=== PATIENT | female | born 1975 | race Caucasian/White ===

== ENCOUNTER 2016-12-14 15:28 | Inpatient (IN) | payer MEDICAID, OTHER ==
[~2016-12-14] VITALS: Ht 144.8 cm; Wt 56.1 kg
[2016-12-14] MEDS ORDERED: fentaNYL INJECTION 100 MCG/2 ML AMP IVP STA (16:12)
[2016-12-14] MEDS ORDERED: NS IV 1000 ML 1,000 ML IV ONE ×2 (16:12→18:14)
[2016-12-14] MEDS ORDERED: ACETAMINOPHEN 325 MG TABLET/CAPLET (TYLENOL) PO STA (16:12)
--- NOTE | 2016-12-14 16:16 | ED General ---
General Chief Complaint: Abdominal/GI Problems Stated Complaint: POST OP/INFECTION Nursing Triage Note: pt was brought to room by wheelchair. pt states she has her appendix removed on 12/10/16. pt states she was recovering fine until yesterday when she started having right sided abd pain. brandon were removed thursday. pt states she was told she had an infection at one of her incision sights. pain has been getting worse from there. pt states she was prescribed antibiotics from [facility]. pt complains of diarrhea and n/v. Nursing Sepsis Screen: Possible Sepsis Risk Source of Information: Patient, Family Exam Limitations: No Limitations History of Present Illness Time Seen by Provider: 15:59 Initial Comments Here with complaint of increasing abdominal pain. She apparently had her appendix removed last Thursday, 03 December. She had increasing pain. She had brandon removed and still had a gaping wound as of Thursday. Apparently was admitted to the hospital at [facility]. She was reported to have had a fever by the patient and family and pain that was worsening. Noted to have some sort of fluid collection in her abdomen. Family was concerned because they state that they were not doing anything at the hospital at [place] and ultimately they left there and came here for further evaluation. They 're very concerned about her care. Patient reports fever and chills and increasing abdominal pain that is no longer just at the right lateral aspect but covers her entire abdomen. She was apparently on multiple antibiotics or multiple IVs but the patient and the family neither knew exactly what she was taking or being given. Timing/Duration: 1 Week, Getting Worse Severity: Moderate, Severe Associated Systoms: No Chest Pain, No Cough, Fever/Chills, Loss of Appetite, Nausea/Vomiting, No Shortness of Air, Weakness Allergies and Home Medications Allergies Coded Allergies: No Known Drug Allergies (Unverified , 12/14/16) Constitutional: see HPI, No chills, fever EENTM: no symptoms reported Respiratory: no symptoms reported, No cough, No short of breath Cardiovascular: no symptoms reported, No chest pain Gastrointestinal: see HPI, abdominal pain (diffuse), No nausea, No vomiting Genitourinary: No dysuria, No pain : No Musculoskeletal: no symptoms reported Skin: no symptoms reported Psychiatric/Neurological: Denies Headache, Weakness Hematologic/Lymphatic: No Symptoms Reported All Other Systems Reviewed Negative Unless Noted: Yes Past Mgbapud-Bubpva-Kjidbd Hx Patient Social History Alcohol Use: Denies Use Recreational Drug Use: No Smoking Status: Current Everyday Smoker 2nd Hand Smoke Exposure: Yes Recent Foreign Travel: No Contact w/Someone Who Travel: No Recent Infectious Disease Expo: No Recent Hopitalizations: Yes (had appendix removed thursday12/10/16) Seasonal Allergies Seasonal Allergies: No Surgeries HX Surgeries: Yes Surgeries: Appendectomy, Hysterectomy Respiratory Hx Respiratory Disorders: No Cardiovascular Hx Cardiac Disorders: No Neurological Hx Neurological Disorders: No 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 Genitourinary Hx Genitourinary Disorders: No Gastrointestinal Hx Gastrointestinal Disorders: No Musculoskeletal Hx Musculoskeletal Disorders: No Endocrine Hx Endocrine Disorders: No HEENT HX ENT Disorders: No Reviewed Nursing Assessment Reviewed/Agree w Nursing PMH: Yes Family Medical History Significant Family History: No Pertinent Family Hx Physical Exam-Suspected Sepsis Physical Exam Vital Signs Vital Sign - Last 12Hours 12/14/16 15:48 Temp 101.9 Pulse 101 Resp 20 B/P (MAP) 118/74 Pulse Ox 97 O2 Delivery Room Air Capillary Refill : Less Than 3 Seconds Blood Pressure Mean: 89 General Appearance: Anxious, Moderate Distress, Thin HEENT: PERRL/EOMI, Pharynx Normal Neck: Non Tender, Supple Respiratory: Lungs Clear, Normal Breath Sounds Cardiovascular: No Murmur, Tachycardia Gastrointestinal: Soft, No Guarding, No Rebound, Tenderness (diffusely) Back: Normal Inspection, No CVA Tenderness, No Vertebral Tenderness Extremity: Normal Range of Motion, Non Tender Neurologic/Psychiatric: Alert, Oriented x3 Skin: normal color, warm/dry, other (wounds to the abdomen secondary to surgical access are clean, dry and intact. All are covered with Steri-Strips.) Focused Exam Lactic Acid Level Laboratory Tests Test 12/14/16 16:13 Lactic Acid Level 1.41 MMOL/L (0.50-2.00) Progress/Results/Core Measures Suspected Sepsis Recent Fever Within 48 Hours: Yes Infection Criteria Present: Suspected New Infection New/Unexplained Altered Menta: No Sepsis Screen: Possible Sepsis Risk Sepsis Diagnosis: SIRS Temperature:101.9 Pulse: 101 Respiratory Rate: 20 Laboratory Tests 12/14/16 16:13: White Blood Count 13.3H Blood Pressure 118 /74 Mean: 89 Laboratory Tests 12/14/16 16:13: Creatinine 0.63, INR Comment 1.5H, Platelet Count 509H, Total Bilirubin 1.0 Results/Orders Lab Results Laboratory Tests Test 12/14/16 16:13 12/14/16 17:00 Range/Units White Blood Count 13.3 H 4.3-11.0 10^3/uL Red Blood Count 3.46 L 4.35-5.85 10^6/uL Hemoglobin 10.3 L 11.5-16.0 G/DL Hematocrit 32 L 35-52 % Mean Corpuscular Volume 91 80-99 FL Mean Corpuscular Hemoglobin 30 25-34 PG Mean Corpuscular Hemoglobin Concent 33 32-36 G/DL Red Cell Distribution Width 12.7 10.0-14.5 % Platelet Count 509 H 130-400 10^3/uL Mean Platelet Volume 9.2 7.4-10.4 FL Neutrophils (%) (Auto) 85 H 42-75 % Lymphocytes (%) (Auto) 11 L 12-44 % Monocytes (%) (Auto) 4 0-12 % Eosinophils (%) (Auto) 0 0-10 % Basophils (%) (Auto) 0 0-10 % Neutrophils # (Auto) 11.3 H 1.8-7.8 X 10^3 Lymphocytes # (Auto) 1.4 1.0-4.0 X 10^3 Monocytes # (Auto) 0.6 0.0-1.0 X 10^3 Eosinophils # (Auto) 0.0 0.0-0.3 10^3/uL Basophils # (Auto) 0.0 0.0-0.1 10^3/uL Prothrombin Time 17.8 H 12.2-14.7 SEC INR Comment 1.5 H 0.8-1.4 Activated Partial Thromboplast Time 48 H 24-35 SEC Sodium Level 138 135-145 MMOL/L Potassium Level 3.2 L 3.6-5.0 MMOL/L Chloride Level 105 98-107 MMOL/L Carbon Dioxide Level 25 21-32 MMOL/L Anion Gap 8 5-14 MMOL/L Blood Urea Nitrogen 7 7-18 MG/DL Creatinine 0.63 0.60-1.30 MG/DL Estimat Glomerular Filtration Rate > 60 BUN/Creatinine Ratio 11 Glucose Level 89 70-105 MG/DL Lactic Acid Level 1.41 0.50-2.00 MMOL/L Calcium Level 9.0 8.5-10.1 MG/DL Total Bilirubin 1.0 0.1-1.0 MG/DL Aspartate Amino Transf (AST/SGOT) 39 H 5-34 U/L Alanine Aminotransferase (ALT/SGPT) 27 0-55 U/L Alkaline Phosphatase 124 40-136 U/L Total Protein 6.1 L 6.4-8.2 GM/DL Albumin 3.0 L 3.2-4.5 GM/DL Urine Color YELLOW Urine Clarity CLEAR Urine pH 7 5-9 Urine Specific [place] 1.010 L 1.016-1.022 Urine Protein 2+ H NEGATIVE Urine Glucose (UA) NEGATIVE NEGATIVE Urine Ketones NEGATIVE NEGATIVE Urine Nitrite NEGATIVE NEGATIVE Urine Bilirubin NEGATIVE NEGATIVE Urine Urobilinogen NORMAL NORMAL MG/DL Urine Leukocyte Esterase NEGATIVE NEGATIVE Urine RBC (Auto) 4+ H NEGATIVE Urine RBC 5-10 H /HPF Urine WBC 2-5 /HPF Urine Squamous Epithelial Cells 2-5 /HPF Urine Crystals NONE /LPF Urine Bacteria FEW H /HPF Urine Casts NONE /LPF Urine Mucus NEGATIVE /LPF Urine Yeast MODERATE H /HPF Urine Culture Indicated YES My Orders Orders - BECKA WILBURN MD Cbc With Automated Diff (12/14/16 16:12) Comprehensive Metabolic Panel (12/14/16 16:12) Lactic Acid Analyzer (12/14/16 16:12) Blood Culture (12/14/16 16:12) Sputum Culture (12/14/16 16:12) Ua Culture If Indicated (12/14/16 16:12) Protime With Inr (12/14/16 16:12) Partial Thromboplastin Time (12/14/16 16:12) Chest 1 View, Ap/Pa Only (12/14/16 16:12) O2 (12/14/16 16:12) Saline Lock/Iv-Start (12/14/16 16:12) Vital Signs Adult Sepsis Patie Q1HR (12/14/16 16:12) Remove Rings In Anticipation O (12/14/16 16:12) Ns Iv 1000 Ml (Sodium Chloride 0.9%) (12/14/16 16:12) Acetaminophen Tablet/Caplet (Tylenol T (12/14/16 16:12) Fentanyl Injection (Sublimaze Injection (12/14/16 16:12) Ct Abdomen/Pelvis W (12/14/16 16:12) Iohexol Injection (Omnipaque 350 Mg/Ml 1 (12/14/16 16:30) Ns (Ivpb) (Sodium Chloride 0.9% Ivpb Bag (12/14/16 16:30) Urine Culture (12/14/16 17:00) Piperacillin Sodium/Tazobactam (Zosyn Vi (12/14/16 17:30) Hydromorphone Injection (Dilaudid Inject (12/14/16 17:29) Medications Given in ED Current Medications Medications Dose Ordered Sig/Shikha Route Start Time Stop Time Status Last Admin Dose Admin Iohexol 100 ml ONCE ONCE IV 12/14/16 16:30 12/14/16 16:31 DC 12/14/16 16:28 100 ML Sodium Chloride 100 ml ONCE ONCE IV 12/14/16 16:30 12/14/16 16:31 DC 12/14/16 16:28 80 ML Sodium Chloride 1,000 ml @ 0 mls/hr Q0M ONCE IV 12/14/16 16:12 12/14/16 16:16 DC 12/14/16 16:45 1,000 MLS/HR Vital Signs/I&O Vital Sign - Last 12Hours 12/14/16 12/14/16 15:48 16:44 Temp 101.9 101.9 Pulse 101 Resp 20 B/P (MAP) 118/74 Pulse Ox 97 O2 Delivery Room Air Capillary Refill : Less Than 3 Seconds Blood Pressure Mean: 89 Progress Note : Progress Note Seen and evaluated. IV, labs, UA, chest x-ray and CT abdomen and pelvis with contrast ordered. Normal saline 1 L bolus. Blood cultures and lactic acid ordered. Monitor patient. 1717: Case discussed with Dr. Vila. There is a large intra-abdominal abscess on the right side noted on CT scan. This is concerning for abscess. Dr. Vila has graciously accepted to admit the patient and will pursue interventional radiology draining if possible. Zosyn 4.5 g IV initiated. Patient's pain was improved briefly with the fentanyl but did not last long. Dilaudid 0.5 mg IV given. Admit, inpatient status. Patient and family informed and agree with plan and are appreciative of care. Diagnostic Imaging Diagonstic Imaging: Xray Plain Films/CT/US/NM/MRI: chest Comments VIA [facility], [facility]. [place], [place] NAME: SAMANTHA CHAND [facility] REC#: [id number] PT STATUS: REG ER : 1975 PHYSICIAN: BECKA WILBURN MD ADMIT DATE: 12/14/16/ER Draft Date of Exam:12/14/16 CHEST 1 VIEW, AP/PA ONLY INDICATION: Appendix removed on 12/10/2016, right-sided pain. EXAMINATION: Frontal chest, 12/14/2016. FINDINGS: There is atelectasis in right lung base. No effusions. No pneumothorax or free air within the visualized upper abdomen. Heart and pulmonary vasculature unremarkable. IMPRESSION: 1. Mild right base atelectasis, otherwise negative chest. Dictated on workstation # [id number] Dict: 12/14/16 1628 Trans: 12/14/16 1633 [facility] [id number] Interpreted by: EDILMA BUNDY MD Electronically signed by: Hilarygonsjsesie Imaging: CT Plain Films/CT/US/NM/MRI: abdomen, pelvis Comments VIA [facility]. [place], [place] NAME: SAMANTHA CHAND [facility] REC#: [id number] PT STATUS: REG ER : 1975 PHYSICIAN: BECKA WILBURN MD ADMIT DATE: 12/14/16/ER Draft Date of Exam:12/14/16 CT ABDOMEN/PELVIS W TECHNIQUE: Multiple contiguous axial images were obtained through the abdomen and pelvis after administration of intravenous contrast. INDICATION: Appendectomy on 12/10/2016. Abdominal pain since yesterday. Nausea, vomiting, diarrhea. EXAMINATION: CT abdomen and pelvis with contrast, 12/14/2016. No priors available for comparison. FINDINGS: There is a large peripherally enhancing fluid collection within the right midabdomen just lateral to the ascending colon. This measures approximately 12.9 cm in craniocaudal dimension, 6.4 cm AP dimension and 5 cm transverse. Most likely given its appearance, this is a large abscess which extends upwards towards the tip of the liver. Actual extension into the liver is felt to be unlikely but difficult to completely exclude. Mild hyperdensity in the adjacent liver is noted. Suture line inferior to the fluid collection is noted in the right lower quadrant consistent with a previous postsurgical change. There is fluid within the adjacent cecum. No free air is appreciated. There is diffuse fat stranding throughout the mesentery. There is free fluid in the pelvis. Gallbladder unremarkable. Fatty infiltration seen throughout the liver. The spleen is normal in appearance. The adrenal glands appear unremarkable as well. The pancreas is normal as well. No acute osseous abnormality is seen. The visualized lung bases demonstrate bibasilar dependent atelectasis. IMPRESSION: 1. Large peripherally enhancing fluid collection in right aspect of the abdomen most consistent with an abscess. Smaller tiny similar findings in the right lower quadrant possible difficult to exclude given lack of oral contrast. 2. Free fluid in the pelvis. 3. Mild fat stranding throughout the mesentery, likely reactive. Clinical exclusion of peritonitis would be recommended. Other incidental findings as described above. 4. Very small bilateral pleural effusions with adjacent bibasilar dependent atelectasis noted. Dictated on workstation # [id number] Dict: 12/14/16 1647 Trans: 12/14/16 1702 [facility] [id number] Interpreted by: EDILMA BUNDY MD Electronically signed by: Reviewed: Reviewed by Me Departure Communication Time/Spoke to Admitting Phy: 17:17 Impression Impression: Primary Impression: Postoperative intra-abdominal abscess Qualified Codes: T81.4XXA - Infection following a procedure, initial encounter ; K65.1 - Peritoneal abscess Disposition: 09 ADMITTED INPATIENT Condition: Stable Admissions Decision to Admit Reason: Admit from ER (General) Decision to Admit/Date: Dec 14, 2016 Time/Decision to Admit Time: 17:17 Departure-Patient Inst. Referrals: NO,LOCAL PHYSICIAN (PCP/Family) Primary Care Physician BECKA WILBRUN MD Dec 14, 2016 16:16
[2016-12-14] MEDS ORDERED: IOHEXOL 350 MG/ML 100 ML (OMNIPAQUE 350) VIAL IV ONE (16:30)
[2016-12-14] MEDS ORDERED: NS 100 ML (IVPB) BAG IV ONE (16:30)
--- NOTE | 2016-12-14 16:33 | Diagnostic Imaging Report ---
INDICATION: Appendix removed on 12/10/2016, right-sided pain. EXAMINATION: Frontal chest, 12/14/2016. FINDINGS: There is atelectasis in right lung base. No effusions. No pneumothorax or free air within the visualized upper abdomen. Heart and pulmonary vasculature unremarkable. IMPRESSION: 1. Mild right base atelectasis, otherwise negative chest. Dictated by: Dictated on workstation # [id number]
[2016-12-14 16:36] LABS: BASOPHILS % (AUTO) 0 % (0-10); EOSINOPHILS % (AUTO) 0 % (0-10); LYMPHOCYTES # (AUTO) 1.4 X 10^3 (1.0-4.0); LYMPHOCYTES % (AUTO) 11 % (12-44); MEAN CORPUSCULAR HEMOGLOBIN 30 PG (25-34); MEAN CORPUSCULAR HGB CONC 33 G/DL (32-36); MEAN CORPUSCULAR VOLUME 91 FL (80-99); MEAN PLATELET VOLUME 9.2 FL (7.4-10.4); MONOCYTES # (AUTO) 0.6 X 10^3 (0.0-1.0); MONOCYTES % (AUTO) 4 % (0-12); NEUTROPHILS # (AUTO) 11.3 X 10^3 (1.8-7.8); NEUTROPHILS % (AUTO) 85 % (42-75); PLATELET COUNT 509 10^3/uL (130-400); RED BLOOD COUNT 3.46 10^6/uL (4.35-5.85); RED CELL DISTRIBUTION WIDTH 12.7 % (10.0-14.5); WHITE BLOOD COUNT 13.3 10^3/uL (4.3-11.0)
[2016-12-14 16:47] LABS: INR 1.5 (0.8-1.4); PROTHROMBIN TIME PATIENT 17.8 SEC (12.2-14.7)
[2016-12-14 16:57] LABS: ALANINE AMINOTRANSFERASE 27 U/L (0-55); ANION GAP 8 MMOL/L (5-14); ASPARTATE AMINO TRANSFERASE 39 U/L (5-34); BLOOD UREA NITROGEN 7 MG/DL (7-18); BUN/CREATININE RATIO 11; CARBON DIOXIDE 25 MMOL/L (21-32); CHLORIDE 105 MMOL/L (98-107); CREATININE SERUM 0.63 MG/DL (0.60-1.30); GFR ESTIMATED > 60; GLUCOSE 89 MG/DL (70-105); POTASSIUM 3.2 MMOL/L (3.6-5.0); SODIUM 138 MMOL/L (135-145); TOTAL PROTEIN 6.1 GM/DL (6.4-8.2)
--- NOTE | 2016-12-14 17:03 | Diagnostic Imaging Report ---
TECHNIQUE: Multiple contiguous axial images were obtained through the abdomen and pelvis after administration of intravenous contrast. INDICATION: Appendectomy on 12/10/2016. Abdominal pain since yesterday. Nausea, vomiting, diarrhea. EXAMINATION: CT abdomen and pelvis with contrast, 12/14/2016. No priors available for comparison. FINDINGS: There is a large peripherally enhancing fluid collection within the right midabdomen just lateral to the ascending colon. This measures approximately 12.9 cm in craniocaudal dimension, 6.4 cm AP dimension and 5 cm transverse. Most likely given its appearance, this is a large abscess which extends upwards towards the tip of the liver. Actual extension into the liver is felt to be unlikely but difficult to completely exclude. Mild hyperdensity in the adjacent liver is noted. Suture line inferior to the fluid collection is noted in the right lower quadrant consistent with a previous postsurgical change. There is fluid within the adjacent cecum. No free air is appreciated. There is diffuse fat stranding throughout the mesentery. There is free fluid in the pelvis. Gallbladder unremarkable. Fatty infiltration seen throughout the liver. The spleen is normal in appearance. The adrenal glands appear unremarkable as well. The pancreas is normal as well. No acute osseous abnormality is seen. The visualized lung bases demonstrate bibasilar dependent atelectasis. IMPRESSION: 1. Large peripherally enhancing fluid collection in right aspect of the abdomen most consistent with an abscess. Smaller tiny similar findings in the right lower quadrant possible difficult to exclude given lack of oral contrast. 2. Free fluid in the pelvis. 3. Mild fat stranding throughout the mesentery, likely reactive. Clinical exclusion of peritonitis would be recommended. Other incidental findings as described above. 4. Very small bilateral pleural effusions with adjacent bibasilar dependent atelectasis noted. Dictated by: Dictated on workstation # [id number]
[2016-12-14 17:08] LABS: BILIRUBIN,URINE NEGATIVE (NEGATIVE); KETONES,URINE NEGATIVE (NEGATIVE); LEUKOCYTE ESTERASE ,URINE NEGATIVE (NEGATIVE); NITRITE,URINE NEGATIVE (NEGATIVE); PH,URINE 7 (5-9); PROTEIN,URINE 2+ (NEGATIVE); UROBILINOGEN,URINE NORMAL (NORMAL)
[2016-12-14 17:20] LABS: YEAST,URINE MODERATE /HPF
[2016-12-14] MEDS ORDERED: HYDROmorphone (DILAUDID) 2 MG/ML VIAL IVP STA (17:29)
[2016-12-14] MEDS ORDERED: PIPERACILLIN/TAZO 4.5 GM VIAL (ZOSYN) IV ONE (17:30)
[2016-12-14 18:53] VITALS: BP 84/53
[2016-12-14] MEDS: POTASSIUM CL 10MEQ/50ML IVPB 50 ML IV SCH ×5 (19:47→23:47)
--- NOTE | 2016-12-14 19:59 | History & Physicial ---
History of Present Illness History of Present Illness Reason for visit/HPI fever and increasing pain over the right lower quadrant of the abdomen.laparoscopic appendectomy 10 days ago with fluctuating temperature and continued malaise. CT scan shows a 12 cm abscess over the right paracecal region, requiring percutaneous drainage. Date of Admission Dec 14, 2016 at 5:32 pm Date Seen by Provider: Dec 14, 2016 Time Seen by Provider: 19:57 I consulted on this patient on 12/14/16 19:56 Attending Physician Naveen Sawant MD Admitting Physician No,Local Physician Consult Allergies and Home Medications Allergies Coded Allergies: No Known Drug Allergies (Unverified , 12/14/16) Past Tuwzlvd-Vvpmpg-Nilsmo Hx Patient Social History Marrital Status: Employed/Student: employed Alcohol Use: Denies Use Recreational Drug Use: No Smoking Status: Current Everyday Smoker Type Used: Cigarettes 2nd Hand Smoke Exposure: Yes Recent Foreign Travel: No Contact w/other who traveled: No Recent Hopitalizations: Yes (had appendix removed thursday12/10/16) Recent Infectious Disease Expo: No Seasonal Allergies Seasonal Allergies: No Surgeries HX Surgeries: Yes Surgeries: Appendectomy, Hysterectomy Respiratory Hx Respiratory Disorders: No Cardiovascular Hx Cardiovascular Disorders: No Neurological Hx Neurological Disorders: No Genitourinary Hx Genitourinary Disorders: No Gastrointestinal Hx Gastrointestinal Disorders: No Musculoskeletal Hx Musculoskeletal Disorders: No Endocrine Hx Endocrine Disorders: No HEENT HX ENT Disorders: No Reviewed Nursing Assessment Reviewed/Agree w Nursing PMH: Yes Family Medical History Significant Family History: No Pertinent Family Hx Constitutional: chills, fever, malaise EENTM: no symptoms reported Respiratory: no symptoms reported Cardiovascular: no symptoms reported Gastrointestinal: abdominal pain (RLQ), loss of appetite Genitourinary: no symptoms reported : No Skin: no symptoms reported Psychiatric/Neurological: No Symptoms Reported Physical Exam Vital Signs Vital Sign - Last 12Hours 12/14/16 15:48 Temp 101.9 Pulse 101 Resp 20 B/P (MAP) 118/74 Pulse Ox 97 O2 Delivery Room Air Capillary Refill : Less Than 3 Seconds General Appearance: Mild Distress HEENT: Normal ENT Inspection Neck: Normal Inspection Respiratory: Lungs Clear Cardiovascular: Regular Rate, Rhythm Gastrointestinal: Tenderness Rectal: Deferred Extremity: Normal Inspection Neurologic/Psychiatric: Alert, Oriented x3 Skin: Warm/Dry Comments tenderness over the right lower quadrant. No wound infection. Assessment/Plan Assessment and Plan lady with post appendectomy abscess. On IV antibiotics. Percutaneous drainage under CT guidance will be scheduled for tomorrow morning. Problems: NAVEEN SAWANT MD Dec 14, 2016 7:59 pm
[2016-12-14] MEDS ORDERED: ONDANSETRON 4 MG/2 ML (SDV) Z0FRAN IVP PRN (20:00)
[2016-12-14] MEDS ORDERED: NICOTINE 7 MG (NICODERM) PATCH TD ONE (20:00)
[2016-12-14] MEDS: NS IV 1000 ML 1,000 ML IV SCH (20:42)
[2016-12-15] VITALS (10 sets, daily range): BP systolic 83–100; BP diastolic 53–68
[2016-12-15] MEDS: fentaNYL INJECTION 100 MCG/2 ML AMP IVP PRN ×6 (01:16→21:40)
[2016-12-15] MEDS: ACETAMINOPHEN 500 MG TAB (TYLENOL) PO PRN ×2 (04:00→15:50)
[2016-12-15 06:01] LABS: BASOPHILS % (AUTO) 0 % (0-10); EOSINOPHILS # (AUTO) 0.1 10^3/uL (0.0-0.3); EOSINOPHILS % (AUTO) 0 % (0-10); LYMPHOCYTES # (AUTO) 1.3 X 10^3 (1.0-4.0); LYMPHOCYTES % (AUTO) 12 % (12-44); MEAN CORPUSCULAR HEMOGLOBIN 30 PG (25-34); MEAN CORPUSCULAR HGB CONC 33 G/DL (32-36); MEAN CORPUSCULAR VOLUME 92 FL (80-99); MEAN PLATELET VOLUME 9.2 FL (7.4-10.4); MONOCYTES # (AUTO) 0.6 X 10^3 (0.0-1.0); MONOCYTES % (AUTO) 5 % (0-12); NEUTROPHILS # (AUTO) 9.3 X 10^3 (1.8-7.8); NEUTROPHILS % (AUTO) 83 % (42-75); PLATELET COUNT 498 10^3/uL (130-400); RED BLOOD COUNT 2.92 10^6/uL (4.35-5.85); RED CELL DISTRIBUTION WIDTH 12.9 % (10.0-14.5); WHITE BLOOD COUNT 11.2 10^3/uL (4.3-11.0)
[2016-12-15 06:13] LABS: INR 1.4 (0.8-1.4); PROTHROMBIN TIME PATIENT 17.1 SEC (12.2-14.7)
[2016-12-15 06:23] LABS: ALANINE AMINOTRANSFERASE 20 U/L (0-55); ALBUMIN 2.5 GM/DL (3.2-4.5); ANION GAP 8 MMOL/L (5-14); ASPARTATE AMINO TRANSFERASE 23 U/L (5-34); BILIRUBIN,TOTAL 0.6 MG/DL (0.1-1.0); BLOOD UREA NITROGEN 5 MG/DL (7-18); BUN/CREATININE RATIO 8; CALCIUM 8.4 MG/DL (8.5-10.1); CARBON DIOXIDE 19 MMOL/L (21-32); CHLORIDE 112 MMOL/L (98-107); CREATININE SERUM 0.59 MG/DL (0.60-1.30); GFR ESTIMATED > 60; GLUCOSE 97 MG/DL (70-105); POTASSIUM 3.4 MMOL/L (3.6-5.0); SODIUM 139 MMOL/L (135-145)
[2016-12-15] MEDS ORDERED: LIDOCAINE 1% INJ 20 ML (XYLOCAINE) VIAL ONE (07:55)
[2016-12-15] MEDS ORDERED: NS IV 1000 ML 1,000 ML IV PRN (08:30)
[2016-12-15] MEDS: NS IV 1000 ML 1,000 ML IV SCH ×2 (09:00→20:03)
[2016-12-15] MEDS: POTASSIUM CL 10MEQ/50ML IVPB 50 ML IV SCH ×4 (09:18→12:25)
--- NOTE | 2016-12-15 09:51 | Diagnostic Imaging Report ---
CT needle aspiration procedure. INDICATION: Pericolonic abscess. The CT abdomen/pelvis exam performed on 12/14/2016, noted a large peripherally enhancing fluid collection along the right lateral aspect of the abdomen. This finding is felt to be related to an abscess. Following aseptic preparation of the skin and administration of local anesthesia a 10-cm Yueh needle was inserted into the fluid collection. Approximately 20 cc of dark non-purulent blood was retrieved. Subsequently, an 8-F catheter was inserted into the area of concern. There was virtually no return from the catheter. The catheter was withdrawn, and the Yueh was advanced into the same area. Again there was virtually no return. Consequently, I do suspect that the pericolonic density seen previously is related to a hematoma. The exam was subsequently terminated. The patient tolerated the procedure well and was dismissed in good condition. IMPRESSION: 1. The pericolonic density seen previously appears to represent a thrombosed hematoma. The specimen received from the suspected hematoma was sent to the lab for analysis. 2. These results were discussed with Dr. Vila. Dictated by: Dictated on workstation # [id number]
[2016-12-15] MEDS ORDERED: LIDOCAINE 1% INJ 20 ML (XYLOCAINE) VIAL INJ ONE (10:00)
[2016-12-15] MEDS ORDERED: fentaNYL INJECTION 100 MCG/2 ML AMP IVP ONE ×2 (10:00→10:15)
[2016-12-15] MEDS ORDERED: OXYC-202 PO (10:14)
[2016-12-15] MEDS ORDERED: ACET-93 PO (10:20)
[2016-12-15] MEDS ORDERED: PIPERACILLIN/TAZOBACTAM 4.5 GM/NS 100 ML IV NR ×2 (15:00)
--- NOTE | 2016-12-15 15:06 | Progress Note (SOAP) ---
Subjective Date Seen by Provider: Dec 15, 2016 Time Seen by Provider: 14:50 Subjective/Events-last exam right lower quadrant drained by the radiologist and found to be a hematoma. Afebrile and pain much improved. Review of Systems General: No Chills, No Night Sweats, No Fatigue, No Malaise HEENT: No Head Aches, No Visual Changes, No Eye Pain, No Ear Pain, No Dysphasia , No Sinus Congestion, No Post Nasal Drip, No Sore Throat, No Other Pulmonary: No Dyspnea, No Cough, No Pleuritic Chest Pain Cardiovascular: No: Chest Pain, Edema, Lt Headedness, Orthopnea, Palpitations, Paroxysmal Noc. Dyspnea Gastrointestinal: Abdominal Pain Genitourinary: No Dysuria, No Frequency, No Incontinence, No Hematuria, No Retention Musculoskeletal: No: arm pain, back pain, foot pain, hand pain, leg pain, neck pain, other, shoulder pain Neurological: No: Change in speech, Confusion, Incoordination, Numbness, Other , Seizures, Weakness Objective Exam Vital Signs Date Time Temp Pulse Resp B/P (MAP) Pulse Ox O2 Delivery O2 Flow Rate FiO2 12/15/16 12:00 99.4 96 20 100/67 96 Room Air 12/15/16 08:50 87 20 93/64 97 Room Air 12/15/16 08:40 89 20 99/66 97 Room Air 12/15/16 08:30 85 20 90/63 97 Room Air 12/15/16 08:20 88 20 88/53 97 Room Air 12/15/16 08:00 97.9 89 20 99/64 97 Room Air 12/15/16 06:14 97.8 12/15/16 05:00 97.9 12/15/16 04:00 101.1 103 18 95/62 91 Room Air 12/15/16 04:00 101.1 12/15/16 00:10 98.9 93 22 83/61 97 Room Air 12/14/16 20:00 Room Air 12/14/16 18:53 98.5 91 20 84/53 96 Room Air 12/14/16 18:36 100.9 100 20 96 Room Air 12/14/16 16:44 101.9 12/14/16 15:48 101.9 101 20 118/74 97 Room Air I & O 12/15/16 07:00 Intake Total 2870 ml Output Total 1000 ml Balance 1870 ml Capillary Refill : Less Than 3 Seconds General Appearance: Anxious, Mild Distress Neck: Normal Inspection Respiratory: Lungs Clear Cardiovascular: Regular Rate, Rhythm Gastrointestinal: non tender, soft Extremity: Normal Inspection Neurologic/Psychiatric: Alert, Oriented x3 Skin: Warm/Dry Results Lab Laboratory Tests 12/14/16 16:13: White Blood Count 13.3H, Red Blood Count 3.46L, Hemoglobin 10.3L, Hematocrit 32L , Mean Corpuscular Volume 91, Mean Corpuscular Hemoglobin 30, Mean Corpuscular Hemoglobin Concent 33, Red Cell Distribution Width 12.7, Platelet Count 509H, Mean Platelet Volume 9.2, Neutrophils (%) (Auto) 85H, Lymphocytes (%) (Auto) 11L , Monocytes (%) (Auto) 4, Eosinophils (%) (Auto) 0, Basophils (%) (Auto) 0, Neutrophils # (Auto) 11.3H, Lymphocytes # (Auto) 1.4, Monocytes # (Auto) 0.6, Eosinophils # (Auto) 0.0, Basophils # (Auto) 0.0, Prothrombin Time 17.8H, INR Comment 1.5H, Activated Partial Thromboplast Time 48H, Sodium Level 138, Potassium Level 3.2L, Chloride Level 105, Carbon Dioxide Level 25, Anion Gap 8, Blood Urea Nitrogen 7, Creatinine 0.63, Estimat Glomerular Filtration Rate > 60 , BUN/Creatinine Ratio 11, Glucose Level 89, Lactic Acid Level 1.41, Calcium Level 9.0, Total Bilirubin 1.0, Aspartate Amino Transf (AST/SGOT) 39H, Alanine Aminotransferase (ALT/SGPT) 27, Alkaline Phosphatase 124, Total Protein 6.1L, Albumin 3.0L 12/14/16 17:00: Urine Color YELLOW, Urine Clarity CLEAR, Urine pH 7, Urine Specific [place] 1.010L, Urine Protein 2+H, Urine Glucose (UA) NEGATIVE, Urine Ketones NEGATIVE, Urine Nitrite NEGATIVE, Urine Bilirubin NEGATIVE, Urine Urobilinogen NORMAL, Urine Leukocyte Esterase NEGATIVE, Urine RBC (Auto) 4+H, Urine RBC 5-10H, Urine WBC 2-5, Urine Squamous Epithelial Cells 2-5, Urine Crystals NONE, Urine Bacteria FEWH, Urine Casts NONE, Urine Mucus NEGATIVE, Urine Yeast MODERATEH, Urine Culture Indicated YES 12/15/16 05:35: White Blood Count 11.2H, Red Blood Count 2.92L, Hemoglobin 8.8L, Hematocrit 27L , Mean Corpuscular Volume 92, Mean Corpuscular Hemoglobin 30, Mean Corpuscular Hemoglobin Concent 33, Red Cell Distribution Width 12.9, Platelet Count 498H, Mean Platelet Volume 9.2, Neutrophils (%) (Auto) 83H, Lymphocytes (%) (Auto) 12 , Monocytes (%) (Auto) 5, Eosinophils (%) (Auto) 0, Basophils (%) (Auto) 0, Neutrophils # (Auto) 9.3H, Lymphocytes # (Auto) 1.3, Monocytes # (Auto) 0.6, Eosinophils # (Auto) 0.1, Basophils # (Auto) 0.0, Prothrombin Time 17.1H, INR Comment 1.4, Activated Partial Thromboplast Time 56H, Sodium Level 139, Potassium Level 3.4L, Chloride Level 112H, Carbon Dioxide Level 19L, Anion Gap 8 , Blood Urea Nitrogen 5L, Creatinine 0.59L, Estimat Glomerular Filtration Rate > 60, BUN/Creatinine Ratio 8, Glucose Level 97, Calcium Level 8.4L, Total Bilirubin 0.6, Aspartate Amino Transf (AST/SGOT) 23, Alanine Aminotransferase ( ALT/SGPT) 20, Alkaline Phosphatase 114, Total Protein 5.0L, Albumin 2.5L Assessment/Plan Assessment/Plan Assess & Plan/Chief Complaint postoperative appendectomy hematoma, aspirated by the radiologist. We'll continue IV antibiotics. Final Diagnosis post-appendectomy hematoma Clinical Quality Measures DVT/VTE Risk/Contraindication: Risk Factor Score Per Nursin RFS Level Per Nursing on Admit: 3=High NAVEEN SAWANT MD Dec 15, 2016 3:06 pm
[2016-12-15] MEDS ORDERED: CATHETER FLUSH 10 ML SYR IV PRN (15:15)
[2016-12-15] MEDS: HYDROcodone/APAP 5 MG/325 MG (LORTAB) TAB PO PRN ×2 (15:30→20:04)
[2016-12-15] MEDS: PIPERACILLIN SODIUM/TAZOBACTAM 4.5 GM in NS (IVPB) 100 ML IV SCH (20:04)
[2016-12-16] VITALS: BP 103/53
[2016-12-16] MEDS: HYDROcodone/APAP 5 MG/325 MG (LORTAB) TAB PO PRN ×4 (00:59→14:19)
[2016-12-16 04:00] VITALS: BP 98/60
[2016-12-16] MEDS: PIPERACILLIN SODIUM/TAZOBACTAM 4.5 GM in NS (IVPB) 100 ML IV SCH ×2 (05:19→14:10)
[2016-12-16 08:17] VITALS: BP 96/60
[2016-12-16] MEDS: NS IV 1000 ML 1,000 ML IV SCH (08:31)
[2016-12-16 12:00] VITALS: BP 109/69
[2016-12-16 15:15] VITALS: BP 117/76
--- NOTE | 2016-12-16 17:21 | Progress Note (SOAP) ---
Subjective Date Seen by Provider: Dec 16, 2016 Time Seen by Provider: 17:05 Subjective/Events-last exam Patient reports doing well. Tolerating diet and ambulating. Denies any N/V. No diarrhea or constipation. Minimal abdominal pain. Patient reports that she is ready to go home. Objective Exam Vital Signs Date Time Temp Pulse Resp B/P (MAP) Pulse Ox O2 Delivery O2 Flow Rate FiO2 12/16/16 15:15 99.6 89 18 117/76 97 Room Air 12/16/16 12:00 98.5 96 20 109/69 97 Room Air 12/16/16 08:17 98.0 75 20 96/60 94 Room Air 12/16/16 04:00 97.5 90 20 98/60 99 Room Air 12/16/16 00:00 98.9 90 22 103/53 95 Room Air 12/15/16 20:00 98.0 82 18 95/58 96 Room Air I & O 12/16/16 07:00 Intake Total 2650 ml Output Total 400 ml Balance 2250 ml Capillary Refill : Less Than 3 Seconds General Appearance: No Apparent Distress, WD/WN HEENT: PERRL/EOMI Neck: Full Range of Motion, Normal Inspection, Non Tender, Supple Respiratory: Chest Non Tender, Lungs Clear, Normal Breath Sounds, No Accessory Muscle Use, No Respiratory Distress Cardiovascular: Regular Rate, Rhythm Gastrointestinal: normal bowel sounds, soft, tenderness Extremity: Normal Capillary Refill, Normal Inspection, Normal Range of Motion, Non Tender, No Calf Tenderness, No Pedal Edema Neurologic/Psychiatric: Alert, Oriented x3 Skin: Normal Color, Warm/Dry Results Lab Microbiology 12/15/16 Blood Culture - Preliminary, Resulted No growth 12/14/16 Urine Culture - Final, Complete Presumptive Emma Glabrata 12/15/16 Gram Stain - Final, Resulted 12/15/16 Anaerobic Culture, Resulted Pending 12/15/16 Surgical Culture - Preliminary, Resulted Escherichia Coli Assessment/Plan Assessment/Plan Assess & Plan/Chief Complaint postoperative appendectomy hematoma, aspirated by the radiologist. WBC improved. VSS. Tolerating diet and ambulating. Will DC home on abx and pain meds. Clinical Quality Measures DVT/VTE Risk/Contraindication: Risk Factor Score Per Nursin RFS Level Per Nursing on Admit: 3=High CRISTHIAN JENSEN [employer]ECT [employer] Dec 16, 2016 17:21
[2016-12-16] MEDS ORDERED: AMOX-355 PO (17:24)
[2016-12-16] MEDS ORDERED: HYDR-3812 PO (17:25)
--- NOTE | 2016-12-16 17:26 | Discharge Inst-Surgical ---
D/C Lap Instructions-KIDO New, Converted, or Re-Newed RX: RX on Chart Follow Up Appt in [address] Vila Activity as tolerated No driving while on pain medications Regular Diet Symptoms to Report: Fever over 101 degree F, Nausea/Vomiting Infection Signs and Symptoms to report: Increased redness, Foul odor of wound, Increased drainage Bathing instructions: May shower Operative Area Clean/Dry; Keep incision clean/dry If any problems/questions: Contact your physician or go to Emergency Room CRISTHIAN JENSEN APRN Dec 16, 2016 5:26 pm
[2016-12-16 18:45] VITALS: BP_DIAS 76
== END 2016-12-16 18:47 | disposition home or self-care (01) | DRG 921 ==
LOC: EDUNIT# 15:28 → ER 15:31 → 4TH 17:32
PROVIDERS: ADMIT Surgery; ATTEND Surgery
PROC: 0W9G3ZZ Drainage of Peritoneal Cavity, Percutaneous Approach (ICD-10-PCS; principal; 2016-12-15)
DX: K91.870 Postprocedural hematoma of a digestive system organ or structure following a digestive system procedure (principal); F17.210 Nicotine dependence, cigarettes, uncomplicated
CPT/HCPCS: 36415; 71010; 74177; 77012; 80053; 81000; 83605; 85025; 85610; 85730; 87040; 87070; 87075; 87088; 87186; 87205; 96361; 96365; 96375

== ENCOUNTER → 2016-12-29 | Outpatient (CLI) | payer MEDICAID ==
[~2016-12-29] MED LIST: ACET-93 PO; AMOX-355 PO; HYDR-3812 PO; OXYC-202 PO
[2016-12-29 17:26] LABS: BASOPHILS % (AUTO) 0 % (0-10); EOSINOPHILS # (AUTO) 0.2 10^3/uL (0.0-0.3); EOSINOPHILS % (AUTO) 3 % (0-10); LYMPHOCYTES % (AUTO) 25 % (12-44); MEAN CORPUSCULAR HEMOGLOBIN 29 PG (25-34); MEAN CORPUSCULAR HGB CONC 32 G/DL (32-36); MEAN CORPUSCULAR VOLUME 89 FL (80-99); MEAN PLATELET VOLUME 8.7 FL (7.4-10.4); MONOCYTES # (AUTO) 0.8 X 10^3 (0.0-1.0); MONOCYTES % (AUTO) 10 % (0-12); NEUTROPHILS % (AUTO) 63 % (42-75); PLATELET COUNT 645 10^3/uL (130-400); RED BLOOD COUNT 4.11 10^6/uL (4.35-5.85); RED CELL DISTRIBUTION WIDTH 13.3 % (10.0-14.5); WHITE BLOOD COUNT 7.9 10^3/uL (4.3-11.0)
[2016-12-29 17:41] LABS: ANION GAP 15 MMOL/L (5-14); BLOOD UREA NITROGEN 6 MG/DL (7-18); BUN/CREATININE RATIO 9; CALCIUM 9.9 MG/DL (8.5-10.1); CARBON DIOXIDE 27 MMOL/L (21-32); CHLORIDE 97 MMOL/L (98-107); CREATININE SERUM 0.69 MG/DL (0.60-1.30); GFR ESTIMATED > 60; GLUCOSE 113 MG/DL (70-105); POTASSIUM 3.5 MMOL/L (3.6-5.0); SODIUM 139 MMOL/L (135-145)
== END ==
LOC: LAB 17:12
PROVIDERS: ATTEND Surgery
DX: R53.83 Other fatigue (principal); R10.31 Right lower quadrant pain
CPT/HCPCS: 36415; 80048; 85025

== ENCOUNTER → 2017-01-08 | Outpatient (CLI) | payer MEDICAID ==
[~2017-01-08] MED LIST changes: +CATHETER FLUSH 10 ML SYR IV PRN; +IOHEXOL 350 MG/ML 100 ML (OMNIPAQUE 350) VIAL IV ONE; +NS 100 ML (IVPB) BAG IV ONE
--- NOTE | 2017-01-09 08:56 | Diagnostic Imaging Report ---
PROCEDURE: CT abdomen and pelvis with contrast. TECHNIQUE: Multiple contiguous axial images were obtained through the abdomen and pelvis after administration of intravenous contrast. INDICATION: Periappendiceal abscess. The previous CT abdomen/pelvis exam of 12/14/2016, indicated a large peripherally enhancing fluid collection in the right lower quadrant. This is felt to be most likely due to an abscess. The patient subsequently underwent a CT-guided percutaneous drainage procedure on 12/15/2016; however, that exam indicated that the abnormal soft tissue density was most likely due to a hematoma. On this finding the area in question has diminished significantly in size. This finding now measures 1.7 x 3.2 cm in size. I do suspect that this is indeed a resolving hematoma. There is no new mass or abscess identified, and there is no significant free fluid collection evident. On the previous exam of 12/14/2016, there were a few fluid-filled segments of small bowel present. These are somewhat more conspicuous on this exam. This appearance is nonspecific but could be secondary to an ileus related to enteritis. There is no sign of a bowel obstruction. The liver, spleen, pancreas, adrenals, kidneys, gallbladder, aorta, and inferior vena cava show no sign of an acute abnormality. The urinary bladder is grossly unremarkable. The surgical sutures low in the pelvis on the right and the surgical clip in the left adnexa seen previously are again evident and unchanged. The uterus itself is surgically absent. The bone windows show no sign of a fracture or of a destructive lesion. The lung bases are clear. IMPRESSION: 1. The large mass along the right colon seen on the prior exam has diminished in size considerably. Most likely this is a resolving hematoma. No new mass or abscess has developed since the prior exam. 2. There are numerous fluid-filled segments of small bowel present. These are somewhat more conspicuous than on the prior exam. This appearance is nonspecific but may be related to an ileus perhaps secondary to enteritis. Clinical followup is recommended. 3. There is no acute abnormality of the abdomen or pelvis noted otherwise. 4. These results were called to Dr. Vila. Dictated by: Dictated on workstation # [id number]
== END ==
LOC: RAD 10:08
PROVIDERS: ATTEND Surgery
DX: G89.18 Other acute postprocedural pain (principal); T14.8 Other injury of unspecified body region
CPT/HCPCS: 74177